=== PATIENT | female | born 1945 | race Caucasian/White ===

== ENCOUNTER → 2017-06-03 | Outpatient (CLI) | payer OTHER ==
[~2017-06-03] MED LIST: ALDACTONE25 M1 PO; CIPRO500 MG PO; DAYPRO600 M1 PO; FLOMAX0.4 MG PO; GINKGO BILOBA120 M2 PO; LATANOPROST2.5 ML IO; MEDROL DOSEPAK4 MG PO; MULTIZYME PO; NKHM; PERCOCET 325 MG1 TA2 PO; PHENERGAN12.5 MG RC; POTASSIUM20 MEQ PO; ROBAXIN750 MG PO; VICO10300 PO; VICODIN 5/500 505 MG PO; [UNRECOGNIZED DRUG - OTHER] PO; [UNRECOGNIZED DRUG - OTHER] PO
[2017-06-03 11:03] LABS: BASO % 0.6 % (0.0-1.0); EOS % 0.6 % (1.0-4.0); HEMATOCRIT 44.8 % (37.0-47.0); LYMPH # 1.1 10*3/uL (1.3-4.4); LYMPH % 17.8 % (27.0-41.0); MEAN CELL VOLUME 85.5 fl (81.0-99.0); MEAN CORPUSCULAR HGB 28.6 pg (27.0-31.0); MEAN CORPUSCULAR HGB CONC 33.5 g/dl (33.0-37.0); MEAN PLATELET VOLUME 9.9 fl (9.6-12.3); MONO # 0.5 10*3/uL (0.1-1.0); MONO % 7.7 % (3.0-9.0); NEUT # 4.6 10*3/uL (2.3-7.9); NEUT % 72.8 % (47.0-73.0); PLATELET COUNT AUTOMATED 303 10*3/uL (130-400); RED BLOOD COUNT 5.24 10*6/uL (4.10-5.10); RED CELL DISTRI WIDTH 12.5 % (0-14.5); WHITE BLOOD COUNT 6.3 10*3/uL (4.8-10.8)
[2017-06-03 11:35] LABS: ALBUMIN 3.8 gm/dl (3.1-4.5); ALKALINE PHOSPHATASE 80 U/L (45-117); BILIRUBIN, DIRECT 0.2 mg/dL (0.0-0.2); BUN 14 mg/dl (7-24); CHLORIDE 106 mmol/L (98-107); CHOLESTEROL 285 mg/dL (<200); CREATININE 0.64 mg/dL (0.55-1.02); HDL CHOLESTEROL 99 mg/dl (40-60); LDL CHOLESTEROL 177 mg/dL (9-159); POTASSIUM 4.1 mmol/L (3.5-5.1); SGOT/AST 15 IU/L (3-35); SGPT/ALT 22 U/L (12-78); SODIUM 141 mmol/L (136-145); TOTAL PROTEIN 7.3 gm/dL (6.4-8.2); TRIGLYCERIDES 47 mg/dl (<150); VLDL CHOLESTEROL 9 mg/dL (6-40)
[2017-06-03 11:40] LABS: THYROID STIM HORMONE (HS) 0.371 uIU/ml (0.358-4.75)
== END | disposition home or self-care (01) ==
LOC: LAB 10:34
PROVIDERS: Family Medicine
DX: E78.00 Pure hypercholesterolemia, unspecified (principal); E55.9 Vitamin D deficiency, unspecified

== ENCOUNTER 2017-08-05 12:39 | Inpatient (IN) | payer OTHER ==
[~2017-08-05] VITALS: Ht 162.6 cm; Wt 59.0 kg
--- NOTE | ~2017-08-05 | PR ---
[place], [place] PROGRESS NOTE NAME: MARTÍN DINERO [facility] #: [id number] UNIT #: [id number] ROOM: 412 DOCTOR: ASHLEIGH CAMPBELL MD BIRTHDATE: [birth year] DOS: 08/06/2017 PROCEDURE: The patient was seen in the Cardiology Department just prior to her stress test today. She is a 71-year-old woman with no previous history of coronary artery disease, who presented to the hospital on 08/05/2017 with precordial chest pain. Her pains have waxed and waned in the hospital. Chest x-ray showed changes suggestive of obstructive lung disease, but no infiltrates or heart failure. Laboratory studies show normal troponin levels x 3. She does have mildly elevated cholesterol, but a very high HDL level. Electrocardiograms have shown no acute ST or T-wave changes. OBJECTIVE: VITAL SIGNS: On exam today, her pulse is 88 and regular, blood pressure 125/66. She is afebrile. She weighs 59 kg and has a body mass index of 22.3. NECK: Supple. She has no jugular distention. Carotids are full. LUNGS: Respirations are unlabored. Her chest is clear. HEART: Has a regular rhythm with an S4 gallop. ABDOMEN: Soft. EXTREMITIES: Showed no edema. IMPRESSION: 1. Chest pain with features suggesting the possibility of unstable angina; however, the patient showed no objective findings to suggest myocardial infarction or acute coronary event. 2. Prediabetes. 3. Glaucoma. 4. Elevated blood pressure on admission, which has subsequently improved. PLAN: We will proceed with an exercise myocardial perfusion study and echocardiogram today. Further recommendations will depend upon the results of these examinations. ASHLEIGH CAMPBELL MD CM:PNTRANS [id number] ASHLEIGH CAMPBELL MD 08/13/17 1916 interface
--- NOTE | ~2017-08-05 | CON ---
[place], [place] REPORT OF CONSULTATION NAME: MARTÍN DINERO [facility] #: [id number] UNIT #: [id number] ROOM: 412 DOCTOR: ASHLEIGH CAMPBELL MD BIRTHDATE: [birth year] DOS: 08/05/2017 REASON FOR CONSULTATION: Chest pain. HISTORY OF PRESENT ILLNESS: The patient is a 71-year-old woman who has no previous history of coronary disease. She was in her normal state of health until yesterday when she had the spontaneous onset of substernal chest pain, which radiated into her left breast and then into both shoulders. She stated that her breast and nipple were actually tender to touch. It was associated with shortness of breath and a feeling of fatigue. She rated the pain at 10/10 and described it as a tight pressure. The pain did not go away despite changing position, deep breathing, etc. She went to bed and was able to sleep, but still had some discomfort the following morning and therefore saw her primary care doctor, Dr. Tan, who evaluated her in the office and then sent her to the hospital for further evaluation. She states that her pains have for the most part resolved. Thus far, serial electrocardiograms and cardiac biomarkers have been entirely normal. Patient's risk factors for coronary artery disease include a history of prediabetes. She does have mildly elevated blood pressure in the hospital. She denies any previous history of myocardial infarction, hypertension or stroke. PAST MEDICAL HISTORY: Includes; 1. Lichen planus, which has troubled her since she was a preteen. 2. Glaucoma. 3. Prediabetes. MEDICATIONS: Prior to admission include Cataplex GTF 317 mg b.i.d., ginkgo biloba 120 mg daily, Xalatan eye drops at bedtime, multizyme 410 mg daily and Parotid PMG 350 mg b.i.d. ALLERGIES: SHE LISTS ALLERGIES TO SULFA, AMOXICILLIN, DOXYCYCLINE, ERYTHROMYCIN, INDAPAMIDE AND PEANUTS. FAMILY HISTORY: Patient's father had a stroke at age 90 and her mother had a stroke at age 83. There is no family history of early cardiovascular disease. REVIEW OF SYSTEMS: The patient denies diplopia, loss of vision or focal weakness. She denies fevers, chills, sweats or recent weight change. She has been fatigued. She has had some dyspnea. She does have a history of lichen planus with itching of her legs. She denies nausea or vomiting. She denies hemoptysis or hematemesis. She denies change in bowel or bladder habits and denies bleeding from her stools or urine. She denies any pedal edema. She denies heat or cold intolerance. The remainder of the review of systems is negative except as noted above. SOCIAL HISTORY: Patient does not smoke or consume alcohol or illegal drugs. She works as a volunteer at [employer]. PHYSICAL EXAMINATION: [place], [place] REPORT OF CONSULTATION NAME: MARTÍN DINERO UNIT #: [id number] ROOM: 412 DOCTOR: ASHLEIGH CAMPBELL MD BIRTHDATE: [birth year] GENERAL: Patient is a well-nourished white female who is awake, alert and oriented. VITAL SIGNS: Pulse is 78 and regular, blood pressure is 153/76. She is afebrile. She weighs 59 kg and has a body mass index of 22.3. HEENT: Normocephalic, atraumatic. Extraocular muscles are intact. Sclerae are clear. Pupils are equal, round and react to light. The oral mucosa is moist. Tongue is midline. NECK: Supple. She has no jugular distention. Carotids are full. I heard soft transmitted murmurs into the carotids bilaterally. She had no neck or supraclavicular masses and no thyromegaly. Respirations were unlabored. CHEST: Clear to auscultation and percussion. She had no presacral edema or chest wall tenderness. CARDIOVASCULAR: Heart had a regular rhythm. She had an S4 gallop. She had no S3. The PMI was not displaced. She had a grade 2/6 systolic ejection murmur along the upper left sternal border, which radiated toward the base and into the neck. No diastolic murmurs were present. ABDOMEN: Soft and normally active without masses, organomegaly or bruits. EXTREMITIES: Showed no edema. She does have excoriations on her ankles bilaterally. LABORATORY DATA: I reviewed her electrocardiogram, which showed sinus rhythm and was a normal tracing. Serial cardiac biomarkers have been negative. IMPRESSION AND RECOMMENDATIONS: 1. Chest pain with features that suggest the possibility of unstable angina. The patient shows no objective findings to suggest a myocardial infarction or an acute coronary event. 2. Prediabetes. 3. Glaucoma. 4. Elevated blood pressure noted during this hospitalization. PLAN: We will be obtaining an echocardiogram in order to determine the significance of her heart murmur and we will also do an exercise myocardial perfusion study. Further recommendations will depend upon the results of these examinations. I thank the hospitalist physicians and Dr. Tan for asking our advice regarding management of this patient. [place], [place] REPORT OF CONSULTATION NAME: ROSET[facility]ARTÍN Gris [facility] [id number] UNIT #: [id number] ROOM: [facility] DOCTOR: ASHLEIGH CAMPBELL MD BIRTHDATE: [birth year] ASHLEIGH CAMPBELL MD CM:CONSTR:REPORT OF CONSULTATION 1858 08/06/17 0004 interface
[2017-08-05 12:55] LABS: BASO # 0.1 10*3/uL (0.0-0.1); BASO % 0.6 % (0.0-1.0); EOS % 0.4 % (1.0-4.0); HEMATOCRIT 44.3 % (37.0-47.0); HEMOGLOBIN 15.1 g/dl (12.0-16.0); LYMPH # 1.2 10*3/uL (1.3-4.4); MEAN CELL VOLUME 83.6 fl (81.0-99.0); MEAN CORPUSCULAR HGB 28.5 pg (27.0-31.0); MEAN CORPUSCULAR HGB CONC 34.1 g/dl (33.0-37.0); MEAN PLATELET VOLUME 9.8 fl (9.6-12.3); MONO # 0.7 10*3/uL (0.1-1.0); MONO % 8.3 % (3.0-9.0); NEUT # 6.3 10*3/uL (2.3-7.9); NEUT % 76.5 % (47.0-73.0); PLATELET COUNT AUTOMATED 269 10*3/uL (130-400); RED CELL DISTRI WIDTH 12.6 % (0-14.5); WHITE BLOOD COUNT 8.2 10*3/uL (4.8-10.8)
[2017-08-05 13:00] VITALS: BP 160/86
[2017-08-05 13:05] LABS: ACT PARTIAL THROMBO TIME 22.6 SECONDS (20.8-31.5); INTERNATIONAL NORM RATIO 0.9 (2.0-3.5)
[2017-08-05 13:12] LABS: ALBUMIN 3.9 gm/dl (3.1-4.5); ALKALINE PHOSPHATASE 73 U/L (45-117); BUN 17 mg/dl (7-24); CHLORIDE 103 mmol/L (98-107); CREATININE 0.69 mg/dL (0.55-1.02); POTASSIUM 3.9 mmol/L (3.5-5.1); SGOT/AST 14 IU/L (3-35); SGPT/ALT 20 U/L (12-78); SODIUM 139 mmol/L (136-145); TOTAL PROTEIN 7.4 gm/dL (6.4-8.2); TROPONIN I < 0.015 ng/ml (<0.045)
[2017-08-05 14:57] VITALS: BP 148/68
--- NOTE | 2017-08-05 15:15 | NUR ---
PT STABLE AND READY FOR TRANSPORT TO THE FLOOR.
[2017-08-05] MEDS ORDERED: FLUCONAZOLE100 MG PO (15:43)
--- NOTE | 2017-08-05 15:52 | NUR ---
RITA IN DR ELKINS OFFICE MADE AWARE OF NEW CONSULT ORDER AND WILL RELAY INFO TO
[2017-08-05 16:00] VITALS: BP 153/76
--- NOTE | 2017-08-05 16:00 | NUR ---
A 71, admitted to , under the services of COLLEEN Hairston DO with a diagnosis of CHEST PAIN R/O HI. Chief complaint is CHEST PAIN. Patient arrived via stretcher from ER. Monitor applied. Initial assessment completed. Vital signs taken and recorded. COLLEEN HAIRSTON DO notified of admission to the unit. Orders received. See assessment for past medical history, medications and allergies. Patient and/or family oriented to unit. [facility]. Clothing/patient valuable form completed. SAMUEL MARRUFO
[2017-08-05] MEDS ORDERED: RENAFOOD PO (16:22)
[2017-08-05] MEDS ORDERED: [UNRECOGNIZED DRUG - OTHER] PO (16:22)
[2017-08-05] MEDS ORDERED: [UNRECOGNIZED DRUG - OTHER] PO (16:22)
[2017-08-05] MEDS ORDERED: [UNRECOGNIZED DRUG - OTHER] PO (16:23)
--- NOTE | 2017-08-05 16:44 | NUR ---
PT HAS RASH TYPE SORES AND SCABBED AREAS TO UPPER AND LOWER EXTREMITIES. PT STATES SHE HAS A LONG HISTORY OF LICHENPLANNUS SINCE 11 YEARS OLD AND THIS IS A CHRONIC CONDITION THAT FLARES UP ALL THE TIME. PT IS CURRENTLY SEEING DR FARRELL FOR THIS. PT DID NOT EVEN WANT ME TO LOOK AT AREA AT FIRST STATING SHE WAS EMBARRESED BY THE CONDITION SHE DID LET ME LOOK AT THE AREA ON HER LOWER LEGS BUT DID NOT WANT ME MEASURING OR TAKING PICTURES OF ANYTHING. PT HAS A SMALL BANDAID TO LEFT OUTER ASPECT OF LEFT LOWER LEG THAT SHE SAYS IS FROM AN OLD WOUND THAT NEVER HEALS UP COMPLETELY BUT DID NOT LET ME SEE THIS AREA.
--- NOTE | 2017-08-05 18:00 | NUR ---
DR CAMPBELL IN TO SEE PT.
[2017-08-05 20:00] VITALS: BP 142/59
--- NOTE | 2017-08-05 21:58 | NUR ---
PATIENT REFUSES KATHERIN ANNE D/T RASH ON BOTH LOWER LEGS.
[2017-08-06] VITALS: BP 141/59
[2017-08-06 07:29] LABS: BASO # 0.1 10*3/uL (0.0-0.1); BASO % 0.8 % (0.0-1.0); EOS # 0.1 10*3/uL (0.0-0.4); EOS % 1.6 % (1.0-4.0); HEMATOCRIT 42.6 % (37.0-47.0); HEMOGLOBIN 14.3 g/dl (12.0-16.0); MEAN CELL VOLUME 84.7 fl (81.0-99.0); MEAN CORPUSCULAR HGB 28.4 pg (27.0-31.0); MEAN CORPUSCULAR HGB CONC 33.6 g/dl (33.0-37.0); MEAN PLATELET VOLUME 10.2 fl (9.6-12.3); MONO # 0.7 10*3/uL (0.1-1.0); MONO % 10.3 % (3.0-9.0); NEUT # 4.5 10*3/uL (2.3-7.9); PLATELET COUNT AUTOMATED 265 10*3/uL (130-400); RED BLOOD COUNT 5.03 10*6/uL (4.10-5.10); RED CELL DISTRI WIDTH 12.8 % (0-14.5); WHITE BLOOD COUNT 6.3 10*3/uL (4.8-10.8)
[2017-08-06 07:42] LABS: ALBUMIN 3.4 gm/dl (3.1-4.5); BUN 13 mg/dl (7-24); CHLORIDE 107 mmol/L (98-107); CHOLESTEROL 226 mg/dL (<200); CREATININE 0.66 mg/dL (0.55-1.02); PHOSPHOROUS 3.1 mg/dL (2.5-4.9); POTASSIUM 4.3 mmol/L (3.5-5.1); SGOT/AST 14 IU/L (3-35); SGPT/ALT 18 U/L (12-78); SODIUM 143 mmol/L (136-145); TRIGLYCERIDES 51 mg/dl (<150); VLDL CHOLESTEROL 10 mg/dL (6-40)
[2017-08-06 07:49] LABS: ALKALINE PHOSPHATASE 62 U/L (45-117); FREE T4 1.09 ng/dl (0.76-1.46); HDL CHOLESTEROL 78 mg/dl (40-60); LDL CHOLESTEROL 138 mg/dL (9-159); THYROID STIM HORMONE (HS) 0.589 uIU/ml (0.358-4.75); TOTAL PROTEIN 6.6 gm/dL (6.4-8.2)
[2017-08-06 08:00] VITALS: BP 125/66
--- NOTE | 2017-08-06 08:00 | NUR ---
Payroll And Benefits Assistant in to talk to patient. Patient states lives at HOME ALONE with . There are 3 steps in the home. Physician: DR FARRELL Pharmacy: [facility] health services: NONE Patient's level of ADLs: INDEPENDENT Patient has working utilities: YES DME: NONE Follow-up physician's appointment after d/c: WILL BE MADE PRIOR TO DC Does patient want to access PORTAL?: Discharge plan HOME. BITA GLOVER
--- NOTE | 2017-08-06 09:15 | NUR ---
INFORMED CONSENT OBTAINED FOR EXERCISE CARDIOLITE STRESS TEST WITH DR. CAMPBELL. RESTING EKG NSR WITH A RESTING HR OF 91 WITH BP OF 118/76 AND HR OF 111 WITH BP OF 122/76 IN STANDING POSITION. PT COMPLETED 4:30 OF A CAROL PROTOCOL WITH COMPLETION OF 1:30 OF STAGE II AT 2.5 MPH AND 12% GRADE. REACHED A PEAK HR OF 156 WHICH IS 110% OF PMHR WITH PEAK BP OF 172/68. TEST TERMINATED BECAUSE OF FATIGUE. HAD CHEST DISCOMFORT WITH DEEP INSPIRATION. EKG NONDIAGNOSTIC WITH UPSLOPING ST. HAS AN AVERAGE EXERCISE TOLERANCE. LAST RECOVERY HR OF 120 WITH BP OF 148/76. AWAITING SCANNING IN STABLE CONDITION.
--- NOTE | 2017-08-06 10:20 | NUR ---
Unable to see patient at this time due to patient being off the floor for a stress test for areas to BLE.
[2017-08-06 12:00] VITALS: BP 127/76
[2017-08-06] MEDS ORDERED: Motrin,Rufen800 MG PO (15:17)
[2017-08-06] MEDS ORDERED: CYCLOBENZAPRINE5 M3 PO (15:17)
[2017-08-06 16:00] VITALS: BP 118/61
--- NOTE | 2017-08-06 17:22 | NUR ---
Discharge instructions reviewed with patient/family. Patient receptive and verbalizes understanding. Follow-up care arranged. Written instructions given to patient/family. PRANAV MENDEZ
== END 2017-08-06 17:21 | disposition home or self-care (01) | DRG 313 ==
LOC: ED 12:39 → 4E 14:15 → EDHOLD 14:15 → 4E 14:32
PROVIDERS: Emergency Medicine; Registered Nurse; ADMIT Internal Medicine
PROC: 4A02XM4 Measurement of Cardiac Total Activity, External Approach (ICD-10-PCS; principal; 2017-08-06)
DX: R07.89 Other chest pain (principal); E44.0 Moderate protein-calorie malnutrition; R73.03 Prediabetes; H40.9 Unspecified glaucoma; R03.0 Elevated blood-pressure reading, without diagnosis of hypertension; R06.02 Shortness of breath; Z88.2 Allergy status to sulfonamides; Z88.1 Allergy status to other antibiotic agents; Z88.8 Allergy status to other drugs, medicaments and biological substances; Z91.010 Allergy to peanuts; Z82.3 Family history of stroke; Z79.899 Other long term (current) drug therapy; Z68.22 Body mass index [BMI] 22.0-22.9, adult

== ENCOUNTER → 2017-08-11 | Outpatient (CLI) | payer OTHER ==
[~2017-08-11] MED LIST changes: +CYCLOBENZAPRINE5 M3 PO; +FLUCONAZOLE100 MG PO; +Motrin,Rufen800 MG PO; +RENAFOOD PO; +[UNRECOGNIZED DRUG - OTHER] PO; +[UNRECOGNIZED DRUG - OTHER] PO; +[UNRECOGNIZED DRUG - OTHER] PO
== END ==
LOC: LAB 15:09
DX: D64.9 Anemia, unspecified (principal)

== ENCOUNTER → 2017-08-15 | Outpatient (CLI) | payer OTHER ==
[2017-08-15 17:12] LABS: BILIRUBIN, DIRECT 0.1 mg/dL (0.0-0.2); TOTAL PROTEIN 7.6 gm/dL (6.4-8.2)
== END | disposition home or self-care (01) ==
LOC: LAB 15:59
PROVIDERS: Family Medicine
DX: Z79.899 Other long term (current) drug therapy (principal)

== ENCOUNTER → 2018-06-03 | Outpatient (CLI) | payer OTHER | END | disposition home or self-care (01) | LOC: MAMMO 10:14 | DX: Z12.31 Encounter for screening mammogram for malignant neoplasm of breast (principal); R92.1 Mammographic calcification found on diagnostic imaging of breast ==

== ENCOUNTER → 2019-03-02 | Outpatient (CLI) | payer OTHER | END | disposition home or self-care (01) | LOC: LAB 14:46 | DX: R73.9 Hyperglycemia, unspecified (principal) ==

== ENCOUNTER → 2019-06-19 | Outpatient (CLI) | payer OTHER ==
[2019-06-19 13:03] LABS: ALBUMIN 4.1 gm/dl (3.1-4.5); ALKALINE PHOSPHATASE 76 U/L (45-117); BASO % 0.7 % (0.0-1.0); BILIRUBIN, DIRECT 0.2 mg/dL (0.0-0.2); BUN 17 mg/dl (7-24); CHLORIDE 104 mmol/L (98-107); CHOLESTEROL 298 mg/dL (<200); CREATININE 0.67 mg/dL (0.55-1.02); EOS % 0.3 % (1.0-4.0); HDL CHOLESTEROL 106 mg/dl (40-60); HEMATOCRIT 47.4 % (37.0-47.0); HEMOGLOBIN 15.9 g/dl (12.0-16.0); LDL CHOLESTEROL 183 mg/dL (9-159); LYMPH # 1.1 10*3/uL (1.3-4.4); LYMPH % 18.6 % (27.0-41.0); MEAN CELL VOLUME 86.5 fl (81.0-99.0); MEAN CORPUSCULAR HGB CONC 33.5 g/dl (33.0-37.0); MEAN PLATELET VOLUME 9.9 fl (9.6-12.3); MONO # 0.4 10*3/uL (0.1-1.0); MONO % 6.3 % (3.0-9.0); NEUT # 4.4 10*3/uL (2.3-7.9); NEUT % 73.9 % (47.0-73.0); PLATELET COUNT AUTOMATED 323 10*3/uL (130-400); POTASSIUM 4.2 mmol/L (3.5-5.1); RED BLOOD COUNT 5.48 10*6/uL (4.10-5.10); RED CELL DISTRI WIDTH 13.4 % (0-14.5); SGOT/AST 18 IU/L (3-35); SGPT/ALT 33 U/L (12-78); SODIUM 138 mmol/L (136-145); THYROXINE (T4) TOTAL 11.1 ug/dl (4.8-13.9); TOTAL PROTEIN 7.5 gm/dL (6.4-8.2); TRIGLYCERIDES 46 mg/dl (<150); VLDL CHOLESTEROL 9 mg/dL (6-40); WHITE BLOOD COUNT 5.9 10*3/uL (4.8-10.8)
[2019-06-19 13:07] LABS: THYROID STIM HORMONE (HS) 0.339 uIU/ml (0.358-4.75)
== END | disposition home or self-care (01) ==
LOC: LAB 11:29
PROVIDERS: Family Medicine
DX: R73.9 Hyperglycemia, unspecified (principal); E78.00 Pure hypercholesterolemia, unspecified; R53.83 Other fatigue

== ENCOUNTER → 2019-09-09 | Outpatient (CLI) | payer OTHER | END | disposition home or self-care (01) | LOC: MAMMO 08-30 14:30 | DX: Z12.31 Encounter for screening mammogram for malignant neoplasm of breast (principal) ==

== ENCOUNTER → 2020-06-22 | Outpatient (CLI) | payer OTHER ==
[2020-06-22 10:32] LABS: MEAN CELL VOLUME 85.2 fl (81.0-99.0); MEAN CORPUSCULAR HGB CONC 32.9 g/dl (33.0-37.0); MEAN PLATELET VOLUME 9.6 fl (9.6-12.3); RED BLOOD COUNT 5.28 10*6/uL (4.10-5.10); RED CELL DISTRI WIDTH 12.8 % (0-14.5); WHITE BLOOD COUNT 6.4 10*3/uL (4.8-10.8)
[2020-06-22 11:05] LABS: ALBUMIN 3.8 gm/dl (3.1-4.5); ALKALINE PHOSPHATASE 82 U/L (45-117); BILIRUBIN, DIRECT 0.2 mg/dL (0.0-0.2); BUN 15 mg/dl (7-24); CHLORIDE 108 mmol/L (98-107); CHOLESTEROL 260 mg/dL (<200); CREATININE 0.58 mg/dL (0.55-1.02); POTASSIUM 4.1 mmol/L (3.5-5.1); SGOT/AST 11 IU/L (3-35); SGPT/ALT 24 U/L (12-78); SODIUM 140 mmol/L (136-145); THYROXINE (T4) TOTAL 10.7 ug/dl (4.8-13.9); TOTAL PROTEIN 7.2 gm/dL (6.4-8.2); TRIGLYCERIDES 46 mg/dl (<150); VLDL CHOLESTEROL 9 mg/dL (6-40)
[2020-06-22 11:11] LABS: HDL CHOLESTEROL 96 mg/dl (40-60); LDL CHOLESTEROL 155 mg/dL (9-159); THYROID STIM HORMONE (HS) 0.199 uIU/ml (0.358-4.75)
== END | disposition home or self-care (01) ==
LOC: LAB 09:57
PROVIDERS: ATTEND Family Medicine
DX: E11.9 Type 2 diabetes mellitus without complications (principal); E78.00 Pure hypercholesterolemia, unspecified; R76.9 Abnormal immunological finding in serum, unspecified; R94.6 Abnormal results of thyroid function studies

== ENCOUNTER → 2020-06-30 | Outpatient (CLI) | payer OTHER | END | disposition home or self-care (01) | LOC: LAB 11:15 | PROVIDERS: ATTEND Family Medicine | DX: E03.9 Hypothyroidism, unspecified (principal) ==

== ENCOUNTER → 2021-05-14 | Outpatient (CLI) | payer OTHER | END | disposition home or self-care (01) | LOC: RAD 09:53 | PROVIDERS: ATTEND Family Medicine | DX: M43.16 Spondylolisthesis, lumbar region (principal); M51.17 Intervertebral disc disorders with radiculopathy, lumbosacral region; M25.552 Pain in left hip ==

== ENCOUNTER → 2021-05-28 | Outpatient (CLI) | payer OTHER | END | disposition home or self-care (01) | LOC: RAD 10:30 | PROVIDERS: ATTEND Family Medicine | DX: M81.0 Age-related osteoporosis without current pathological fracture (principal); Z78.0 Asymptomatic menopausal state ==

== ENCOUNTER → 2021-07-27 | Outpatient (CLI) | payer OTHER ==
[2021-07-27 11:02] LABS: ALBUMIN 3.6 gm/dl (3.1-4.5); ALKALINE PHOSPHATASE 71 U/L (45-117); BUN 14 mg/dl (7-24); CHLORIDE 110 mmol/L (98-107); CHOLESTEROL 286 mg/dL (<200); CREATININE 0.61 mg/dL (0.55-1.02); LDL CHOLESTEROL 177 mg/dL (9-159); SGOT/AST 17 IU/L (3-35); SGPT/ALT 21 U/L (12-78); SODIUM 141 mmol/L (136-145); THYROXINE (T4) TOTAL 7.5 ug/dl (4.8-13.9); TOTAL PROTEIN 7.1 gm/dL (6.4-8.2); TRIGLYCERIDES 64 mg/dl (<150)
[2021-07-27 11:03] LABS: POTASSIUM 3.9 mmol/L (3.5-5.1)
[2021-07-27 11:08] LABS: THYROID STIM HORMONE (HS) 0.584 uIU/ml (0.358-4.75)
[2021-07-27 12:55] LABS: BASO % 0.5 % (0.0-1.0); EOS % 0.6 % (1.0-4.0); HEMATOCRIT 43.7 % (37.0-47.0); LYMPH % 16.2 % (27.0-41.0); MEAN CELL VOLUME 85.2 fl (81.0-99.0); MEAN CORPUSCULAR HGB 27.9 pg (27.0-31.0); MEAN CORPUSCULAR HGB CONC 32.7 g/dl (33.0-37.0); MEAN PLATELET VOLUME 9.3 fl (9.6-12.3); MONO # 0.5 10*3/uL (0.1-1.0); MONO % 8.5 % (3.0-9.0); NEUT # 4.6 10*3/uL (2.3-7.9); PLATELET COUNT AUTOMATED 282 10*3/uL (130-400); RED BLOOD COUNT 5.13 10*6/uL (4.10-5.10); RED CELL DISTRI WIDTH 13.1 % (0-14.5); WHITE BLOOD COUNT 6.3 10*3/uL (4.8-10.8)
== END | disposition home or self-care (01) ==
LOC: LAB 10:20
PROVIDERS: ATTEND Family Medicine
DX: E03.9 Hypothyroidism, unspecified (principal); E55.9 Vitamin D deficiency, unspecified

== ENCOUNTER → 2021-08-02 | Outpatient (CLI) | payer OTHER | END | disposition home or self-care (01) | LOC: LAB 14:56 | PROVIDERS: ATTEND Family Medicine | DX: R73.9 Hyperglycemia, unspecified (principal) ==

== ENCOUNTER → 2021-08-15 | Outpatient (CLI) | payer OTHER | END | disposition home or self-care (01) | LOC: MRI 08:48 | PROVIDERS: ATTEND Family Medicine | DX: M51.16 Intervertebral disc disorders with radiculopathy, lumbar region (principal); M48.061 Spinal stenosis, lumbar region without neurogenic claudication; M43.16 Spondylolisthesis, lumbar region ==

== ENCOUNTER → 2022-02-06 | Outpatient (CLI) | payer OTHER | END | disposition home or self-care (01) | LOC: MAMMO 08:22 | PROVIDERS: ATTEND Family Medicine | DX: Z12.31 Encounter for screening mammogram for malignant neoplasm of breast (principal) ==

== ENCOUNTER → 2022-02-13 | Outpatient (CLI) | payer OTHER | END | disposition home or self-care (01) | LOC: US 12:51 → MAMMO 13:00 | PROVIDERS: ATTEND Family Medicine | DX: R92.8 Other abnormal and inconclusive findings on diagnostic imaging of breast (principal); R92.2 Inconclusive mammogram; N64.4 Mastodynia; N64.52 Nipple discharge ==

== ENCOUNTER → 2022-12-02 | Outpatient (CLI) | payer OTHER ==
[2022-12-02 11:38] LABS: BASO % 0.5 % (0.0-1.0); EOS % 0.3 % (1.0-4.0); HEMATOCRIT 46.7 % (37.0-47.0); LYMPH # 0.7 10*3/uL (1.3-4.4); LYMPH % 12.3 % (27.0-41.0); MEAN CELL VOLUME 85.1 fl (81.0-99.0); MEAN CORPUSCULAR HGB 28.6 pg (27.0-31.0); MEAN CORPUSCULAR HGB CONC 33.6 g/dl (33.0-37.0); MEAN PLATELET VOLUME 9.6 fl (9.6-12.3); MONO # 0.5 10*3/uL (0.1-1.0); MONO % 8.5 % (3.0-9.0); NEUT # 4.6 10*3/uL (2.3-7.9); NEUT % 78.2 % (47.0-73.0); PLATELET COUNT AUTOMATED 327 10*3/uL (130-400); RED BLOOD COUNT 5.49 10*6/uL (4.10-5.10); RED CELL DISTRI WIDTH 12.7 % (0-14.5); WHITE BLOOD COUNT 5.9 10*3/uL (4.8-10.8)
[2022-12-02 12:11] LABS: ALKALINE PHOSPHATASE 85 U/L (46-116); BUN 13 mg/dl (9-23); CHLORIDE 105 mmol/L (98-107); CHOLESTEROL 266 mg/dL (<200); LDL CHOLESTEROL 181 mg/dL (9-159); POTASSIUM 3.6 mmol/L (3.4-5.1); SGPT/ALT 14 U/L (10-49); THYROID STIM HORMONE (HS) 0.656 uIU/ml (0.550-4.780); THYROXINE (T4) TOTAL 9.1 ug/dl (4.5-10.9); TOTAL PROTEIN 7.1 gm/dL (6.0-8.0); TRIGLYCERIDES 65 mg/dl (<150)
== END | disposition home or self-care (01) ==
LOC: LAB 10:54
PROVIDERS: ATTEND Family Medicine
DX: F41.9 Anxiety disorder, unspecified (principal); G62.9 Polyneuropathy, unspecified; R53.83 Other fatigue; Z79.899 Other long term (current) drug therapy

== ENCOUNTER → 2023-02-13 | Outpatient (CLI) | payer OTHER ==
[2023-02-13 11:35] LABS: ALKALINE PHOSPHATASE 73 U/L (46-116); BUN 10 mg/dl (9-23); CHLORIDE 105 mmol/L (98-107); CHOLESTEROL 263 mg/dL (<200); LDL CHOLESTEROL 179 mg/dL (9-159); POTASSIUM 3.7 mmol/L (3.4-5.1); SGPT/ALT 17 U/L (10-49); TOTAL PROTEIN 6.9 gm/dL (6.0-8.0); TRIGLYCERIDES 92 mg/dl (<150)
== END | disposition home or self-care (01) ==
LOC: LAB 10:39
PROVIDERS: ATTEND Dermatology
DX: L43.8 Other lichen planus (principal); Z79.899 Other long term (current) drug therapy

== ENCOUNTER → 2023-07-15 | Outpatient (CLI) | payer OTHER ==
[~2023-07-15] MED LIST changes: +ACITRETIN PO; +HYDROXYZINE HCL25 MG PO; +LISINOPRIL5 MG PO; +MECLIZINE HCL25 M2 PO; +VITAMIN A2400 MCG PO
== END | disposition home or self-care (01) ==
LOC: LAB 14:28
PROVIDERS: ATTEND Family Medicine
DX: Z79.899 Other long term (current) drug therapy (principal)

== ENCOUNTER → 2023-08-14 | Outpatient (CLI) | payer OTHER | END | disposition home or self-care (01) | LOC: LAB 08:14 | PROVIDERS: ATTEND Family Medicine | DX: R19.7 Diarrhea, unspecified (principal); R19.5 Other fecal abnormalities ==

== ENCOUNTER → 2023-08-20 | Outpatient (CLI) | payer OTHER | END | disposition home or self-care (01) | LOC: CARD 10:17 | PROVIDERS: ATTEND Family Medicine | DX: I10 Essential (primary) hypertension (principal) ==

== ENCOUNTER → 2023-08-22 | Outpatient (CLI) | payer OTHER ==
[2023-08-22 13:35] LABS: BASO # 0.1 10*3/uL (0.0-0.1); EOS # 0.1 10*3/uL (0.0-0.4); EOS % 0.8 % (1.0-4.0); HEMATOCRIT 40.6 % (37.0-47.0); LYMPH % 16.1 % (27.0-41.0); MEAN CELL VOLUME 85.1 fl (81.0-99.0); MEAN CORPUSCULAR HGB 28.1 pg (27.0-31.0); MEAN PLATELET VOLUME 9.3 fl (9.6-12.3); MONO # 0.6 10*3/uL (0.1-1.0); MONO % 10.2 % (3.0-9.0); NEUT # 4.4 10*3/uL (2.3-7.9); NEUT % 71.6 % (47.0-73.0); PLATELET COUNT AUTOMATED 375 10*3/uL (130-400); RED BLOOD COUNT 4.77 10*6/uL (4.10-5.10); RED CELL DISTRI WIDTH 12.9 % (0-14.5); WHITE BLOOD COUNT 6.1 10*3/uL (4.8-10.8)
== END | disposition home or self-care (01) ==
LOC: LAB 12:54
PROVIDERS: ATTEND Family Medicine
DX: R19.5 Other fecal abnormalities (principal)

== ENCOUNTER 2023-09-28 06:14 | Emergency (ER) | payer OTHER ==
[~2023-09-28] VITALS: Ht 162.5 cm; Wt 72.6 kg
[2023-09-28 07:34] LABS: ALKALINE PHOSPHATASE 69 U/L (46-116); BUN 10 mg/dl (9-23); CHLORIDE 105 mmol/L (98-107); LIPASE 37 U/L (12-53); POTASSIUM 3.7 mmol/L (3.4-5.1); SGPT/ALT 15 U/L (5-49)
[2023-09-28 08:13] LABS: BASO % 0.5 % (0.0-1.0); EOS % 0.1 % (1.0-4.0); HEMATOCRIT 49.5 % (37.0-47.0); LYMPH # 0.7 10*3/uL (1.3-4.4); LYMPH % 7.7 % (27.0-41.0); MEAN CORPUSCULAR HGB 27.2 pg (27.0-31.0); MEAN CORPUSCULAR HGB CONC 32.3 g/dl (33.0-37.0); MEAN PLATELET VOLUME 9.4 fl (9.6-12.3); MONO % 11.5 % (3.0-9.0); NEUT # 6.9 10*3/uL (2.3-7.9); NEUT % 79.5 % (47.0-73.0); PLATELET COUNT AUTOMATED 244 10*3/uL (130-400); RED BLOOD COUNT 5.89 10*6/uL (4.10-5.10); RED CELL DISTRI WIDTH 14.2 % (0-14.5); WHITE BLOOD COUNT 8.7 10*3/uL (4.8-10.8)
[2023-09-28] MEDS ORDERED: ASPIRIN ADULT L81 M2 PO (08:29)
[2023-09-28] MEDS ORDERED: MEDI-MECLIZINE25 MG PO (08:29)
[2023-09-28] MEDS ORDERED: ONDANSETRON4 MG SL (09:33)
== END 2023-09-28 09:47 | disposition home or self-care (01) ==
LOC: ED 06:14
PROVIDERS: Internal Medicine
DX: H81.10 Benign paroxysmal vertigo, unspecified ear (principal); I10 Essential (primary) hypertension; R11.2 Nausea with vomiting, unspecified; F41.9 Anxiety disorder, unspecified; R10.2 Pelvic and perineal pain; Z87.442 Personal history of urinary calculi; Z88.2 Allergy status to sulfonamides; Z88.1 Allergy status to other antibiotic agents; Z88.8 Allergy status to other drugs, medicaments and biological substances; Z98.890 Other specified postprocedural states; Z90.89 Acquired absence of other organs

== ENCOUNTER → 2023-11-17 | Outpatient (CLI) | payer OTHER ==
[~2023-11-17] MED LIST changes: +ASPIRIN ADULT L81 M2 PO; +MEDI-MECLIZINE25 MG PO; +ONDANSETRON4 MG SL
== END | disposition home or self-care (01) ==
LOC: CARD 09-23 13:00
PROVIDERS: ATTEND Internal Medicine Cardiovascular Disease
DX: I11.9 Hypertensive heart disease without heart failure (principal); R06.09 Other forms of dyspnea

== ENCOUNTER → 2023-11-26 | Outpatient (CLI) | payer OTHER | END | disposition home or self-care (01) | LOC: US 03:54 | PROVIDERS: ATTEND Family Medicine | DX: N60.19 Diffuse cystic mastopathy of unspecified breast (principal); N63.20 Unspecified lump in the left breast, unspecified quadrant ==

== ENCOUNTER → 2024-08-30 | Outpatient (CLI) | payer OTHER ==
[2024-08-30 10:08] LABS: BASO # 0.1 10*3/uL (0.0-0.1); BASO % 0.9 % (0.0-1.0); EOS # 0.1 10*3/uL (0.0-0.4); EOS % 0.9 % (1.0-4.0); HEMATOCRIT 46.2 % (37.0-47.0); MEAN CELL VOLUME 85.6 fl (81.0-99.0); MEAN CORPUSCULAR HGB CONC 32.7 g/dl (33.0-37.0); MEAN PLATELET VOLUME 9.4 fl (9.6-12.3); MONO # 0.5 10*3/uL (0.1-1.0); MONO % 9.1 % (3.0-9.0); NEUT # 4.3 10*3/uL (2.3-7.9); NEUT % 75.6 % (47.0-73.0); PLATELET COUNT AUTOMATED 304 10*3/uL (130-400); RED CELL DISTRI WIDTH 13.2 % (0-14.5); WHITE BLOOD COUNT 5.7 10*3/uL (4.8-10.8)
[2024-08-30 11:05] LABS: ALKALINE PHOSPHATASE 74 U/L (46-116); BUN 10 mg/dl (9-23); CHLORIDE 104 mmol/L (98-107); CHOLESTEROL 292 mg/dL (<200); LDL CHOLESTEROL 187 mg/dL (9-159); SGPT/ALT 16 U/L (5-49); THYROXINE (T4) TOTAL 8.4 ug/dl (4.5-10.9); TOTAL PROTEIN 7.3 gm/dL (6.0-8.0); TRIGLYCERIDES 67 mg/dl (<150)
== END | disposition home or self-care (01) ==
LOC: LAB 09:50
PROVIDERS: ATTEND Family Medicine
DX: I10 Essential (primary) hypertension (principal); R73.9 Hyperglycemia, unspecified

== ENCOUNTER 2025-03-26 12:31 | Emergency (ER) | payer OTHER ==
[~2025-03-26] VITALS: Ht 160 cm; Wt 50.3 kg
[2025-03-26 13:23] LABS: BASO # 0.1 10*3/uL (0.0-0.1); BASO % 0.6 % (0.0-1.0); EOS # 0.0 10*3/uL (0.0-0.4); EOS % 0.1 % (1.0-4.0); MEAN CELL VOLUME 83.9 fl (81.0-99.0); MEAN CORPUSCULAR HGB 27.8 pg (27.0-31.0); MEAN PLATELET VOLUME 9.4 fl (9.6-12.3); MONO # 0.7 10*3/uL (0.1-1.0); MONO % 8.2 % (3.0-9.0); NEUT # 7.2 10*3/uL (2.3-7.9); NEUT % 82.8 % (47.0-73.0); NUCLEATED RED BLOOD CELL 0.0 % (0.0-0.0); NUCLEATED RED BLOOD CELL 0.0 10*3/uL (0.0-0.0); PLATELET COUNT AUTOMATED 297 10*3/uL (130-400); RED CELL DISTRI WIDTH 13.1 % (0-14.5)
[2025-03-26 13:48] LABS: BUN 18 mg/dl (9-23); SGPT/ALT 14 U/L (5-49)
[2025-03-26 14:33] LABS: BILIRUBIN Negative (Negative); BLOOD Negative (Negative); CLARITY Clear (Clear); COLOR Yellow (Yellow); KETONE 1+ (Negative); LEUKO ESTERASE Trace (Negative); NITRITE Negative (Negative); PH 7.0 (4.5-8.0); SPECIFIC GRAVITY 1.015 (1.001-1.030); UROBILINOGEN 0.2 E.U./dl (0.0-1.0)
[2025-03-26 15:09] LABS: BACTERIA 1+; CALCIUM OXALATE CRYSTALS 2+
[2025-03-26] MEDS ORDERED: CIPRO500 MG PO (16:04)
== END 2025-03-26 16:16 | disposition home or self-care (01) ==
LOC: ED 12:31
PROVIDERS: Internal Medicine
DX: R42 Dizziness and giddiness (principal); N39.0 Urinary tract infection, site not specified; F41.9 Anxiety disorder, unspecified; Z79.82 Long term (current) use of aspirin; Z79.899 Other long term (current) drug therapy; Z88.1 Allergy status to other antibiotic agents; Z88.8 Allergy status to other drugs, medicaments and biological substances; Z90.89 Acquired absence of other organs; Z98.890 Other specified postprocedural states